=== PATIENT | female | born 1975 | race Caucasian/White ===

== ENCOUNTER 2021-10-24 19:09 | Emergency (ER) | payer OTHER ==
[~2021-10-24] VITALS: Ht 167.6 cm; Wt 61.2 kg
[2021-10-24] MEDS ORDERED: LEVO75TA PO (19:36)
[2021-10-24] MEDS ORDERED: METH36TA PO (19:36)
--- NOTE | 2021-10-24 19:55 | NUR ---
Dr. Blood at bedside for MSE.
--- NOTE | 2021-10-24 20:01 | NUR ---
Xray at bedside.
--- NOTE | 2021-10-24 20:08 | NUR ---
Pt refused IV.
[2021-10-24 20:25] LABS: HEMATOCRIT 37.3 % (31.2-41.9); MEAN CORPUSCULAR VOLUME 90.3 fL (75.5-95.3); PLATELET COUNT (AUTO) 196 K/uL (179-408)
[2021-10-24 20:32] LABS: CARBON DIOXIDE 28 mmol/L (21-32); CHLORIDE 106 mmol/L (98-107); CREATININE 0.6 mg/dL (0.6-1.3); GLUCOSE 99 mg/dL (74-106); MAGNESIUM 2.2 mg/dL (1.8-2.4); POTASSIUM 3.7 mmol/L (3.5-5.1); UREA NITROGEN, BLOOD 24 mg/dL (7-18)
[2021-10-24] MEDS ORDERED: OXYC-128 PO (21:08)
--- NOTE | 2021-10-24 21:08 | NUR ---
Patient discharged to home in stable condition. Written and verbal after care instructions given. Patient verbalizes understanding of instructions. Stressed follow up or return to ER for worsening s/s. Patient out of ER with steady gait, no acute signs of distress, VSS, all belongings taken, provided with copies of labs and xray results.
[2021-10-24 21:11] VITALS: BP 134/61
== END 2021-10-24 21:12 | disposition home or self-care (01) ==
LOC: ER 19:09
DX: R09.1 Pleurisy (principal); Z85.3 Personal history of malignant neoplasm of breast; E03.9 Hypothyroidism, unspecified; Z79.890 Hormone replacement therapy; Z20.822 Contact with and (suspected) exposure to COVID-19
CPT/HCPCS: 36415; 71045; 80048; 83735; 84484; 85025; 85379; 85651; 86140; 93005; 99285; C9803; U0003; A4663